=== PATIENT | female | born 1990 | race African-American/Black ===

== ENCOUNTER 2021-11-10 11:58 | Emergency (ER) | payer SELFPAY ==
[~2021-11-10] VITALS: Ht 170.2 cm; Wt 82.6 kg
[2021-11-10 12:05] VITALS: BP 135/74
--- NOTE | 2021-11-10 12:08 | NUR ---
PT TO LOBBY.
[2021-11-10 13:23] LABS: BASOPHILS # (AUTO) 0.1 K/uL (0.00-0.22); BASOPHILS % (AUTO) 1.6 % (0.0-2.0); EOSINOPHILS # (AUTO) 0.2 K/uL (0-0.4); EOSINOPHILS % (AUTO) 2.8 % (0.0-4.0); HEMATOCRIT 35.1 % (36-48); HEMOGLOBIN 11.8 g/dL (12.0-16.0); LYMPHOCYTES % (AUTO) 34.7 % (20.5-51.1); MEAN CORPUSCULAR HEMOGLOBIN 30 pg (27-31); MEAN CORPUSCULAR HGB CONC 34 g/dL (33-37); MEAN CORPUSCULAR VOLUME 88.6 fL (80-94); MONOCYTES # (AUTO) 0.7 K/uL (0.8-1.0); NEUTROPHILS # (AUTO) 2.8 K/uL (1.8-7.7); NEUTROPHILS % (AUTO) 48.9 % (42.2-75.2); PLATELET COUNT (AUTO) 328 K/uL (140-450); RED BLOOD CELL COUNT(AUTO) 3.97 MIL/uL (4.20-5.40); RED CELL DISTRIBUTION WIDTH 13.4 % (11.6-13.7); WHITE BLOOD COUNT (AUTO) 5.8 K/uL (4.8-10.8)
--- NOTE | 2021-11-10 13:40 | NUR ---
31/F PRESENTS TO ED WITH C/O VAGINAL BLEEDING SINCE YESTERDAY. PATIENT STATES SHE IS "ABOUT 7 WEEKS " AND HAS NOT SEEN AN OB DOCTOR YET. PATIENT DENIES N/V/D, BUT STATES INTERMITTENT EPISODES OF LOWER ABDOMINAL CRAMPING SINCE YESTERDAY. DENIES DIZZINESS, CP, SOB OR URINARY SYMPTOMS.
[2021-11-10 15:59] VITALS: BP 143/79
--- NOTE | 2021-11-10 15:59 | NUR ---
Patient discharged with v/s stable. Written and verbal after care instructions ABOUT THREATENED MISCARRIAGE given and explained. Patient verbalized understanding. Ambulatory with steady gait. All questions addressed prior to discharge. Advised to follow up with PMD.
== END 2021-11-10 15:59 | disposition home or self-care (01) ==
LOC: MED 11:58
DX: O20.0 Threatened abortion (principal); O99.411 Diseases of the circulatory system complicating pregnancy, first trimester; R03.0 Elevated blood-pressure reading, without diagnosis of hypertension; Z3A.01 Less than 8 weeks gestation of pregnancy
CPT/HCPCS: 36415; 76817; 81002; 81025; 84702; 85025; 86900; 86901; 99284; Q0092; 99285